=== PATIENT | female | born 2005 | race African-American/Black ===

== ENCOUNTER 2025-01-08 00:36 | Day surgery (SDC) | payer OTHER, SELFPAY ==
--- NOTE | 2024-12-27 10:35 | SUR.PREOP ---
Report to the Outpatient Waiting Room, entrance under the green pavilion located off [facility], at time ___0600____ on date ___01/08/25____. Planned Procedure Time: ____729____.? Time changes happen often and if your time is changed the preop area will call you the afternoon before. - You and your visitor will be asked to self-screen and do not enter if you have any COVID symptoms. Please call surgeon if you need to reschedule. - A mask is optional within the hospital at this time. - No food OR DRINK AFTER 11:30PM 01/07/25 until time of surgery and no smoking, or chewing tobacco (or any form of nicotine). No chewing gum, candy or mints. Take only the following medications with a SIP of water on the morning of surgery: N/A DO NOT STOP ANY OF YOUR OTHER PRESCRIPTION MEDICATIONS PRIOR TO SURGERY EXCEPT THE FOLLOWING Hold all vitamins and supplements for 3 days per anesthesiologist. Medications to discontinue per physician N/A Date to take last dose Please no make-up, nail egyptian, hairspray, perfume, deodorant, or body powder the day of surgery.? No jewelry (including any body piercings) or valuables the day of surgery, leave them at home.? Please take a shower or bath the night before, or the morning of, surgery with an antibacterial soap.? Wear comfortable, loose fitting clothing.? Children are encouraged to wear pajamas. - Jewelry must be removed prior to entering the operating room.? Rings and piercings that are not removed may be cut off. - The hospital will not accept responsibility for valuables.? - Please leave all valuables, including medications, at home the day of surgery. If you are going home after surgery, a licensed test driver must drive you home.? - NO public transportation without another adult if you receive anesthesia. - We recommend that an adult stay with you for 24 hours following discharge. - We also recommend that you do not drive, make important decision, drink alcoholic beverages, or take any drugs that were not prescribed by your health care provider for at least 24 hours after your discharge time. For Pediatric surgeries, we recommend two adults accompany the child home. Follow any additional instructions given to you from your surgeon. Telephone instructions given to MJ GONZALEZ and asked if any additional questions and then verbalized understanding. Patient advised to call surgeon office or pre surgery nurse liaison [phone] if any additional questions.
[2024-12-27 10:46] VITALS: BMI 30.5
[2025-01-08] VITALS (9 sets, daily range): BP systolic 111–138; BP diastolic 59–87; PULSE 68–112; RESP 12–16; TEMP 36.2–36.4; O2SAT 94–100; BMI 31.8
--- OUTSIDE RECORDS SUMMARY | 2025-01-08 00:39 | XMS_ITS | Clinical Summary ---
Author Organization [facility] Address [address] [place] [address] Care Team Providers Care Record Keeper Name Role Phone Unavailable Primary Care Provider Unavailabl e Source Comments [facility],non-owned Affiliates and Associated Physician Practices is amultiple site organization consisting of ambulatory clinics and hospital sitesin [place], [place], [place] and [place]. This disclosure is being madepursuant to the Care Everywhere program and may not contain all information available regarding this patient. Last updated 18.Tutee Allergies No known active allergies Medications * Be aware that medications may not be up to date on this document. Alwaysverify current medications with the patient. Medication Sig Dispensed Refills Start Date End Date Status dextromethorphan-g uaiFENesin (Robitussin DM) 10-100 MG/5ML syrup Take 10 mL by mouth every 6 hours as needed for Cough 236 mL 09/03/2024 Active acetaminophen (Tylenol) 500 MG tablet Take 1 (one) tablet by mouth every 4 hours as needed for Fever or Pain Maximum allowable Acetaminophen amount = 4 Grams (4000 mg) / 24 hours. 30 tablet 09/03/2024 Active Social History Tobacco Use Types Packs/Day Years Used Date Smoking Tobacco: Never Assessed Sex and Gender Information Value Date Recorded Sex Assigned at Not on file Gender Identity Not on file Sexual Orientation Not on file Last Filed Vital Signs Vital Sign Reading Time Taken Comments Blood Pressure 133/89 09/03/2024 8:00 PM COMPLIANCE REVIEW OFFICER Pulse 97 09/03/2024 8:00 PM COMPLIANCE REVIEW OFFICER Temperature 36.6 C (97.8 F) 09/03/2024 2:08 PM COMPLIANCE REVIEW OFFICER Respiratory Rate 18 09/03/2024 8:00 PM COMPLIANCE REVIEW OFFICER Oxygen Saturation 96% 09/03/2024 8:00 PM COMPLIANCE REVIEW OFFICER Inhaled Oxygen Concentration - - Weight 78 kg (172 lb) 09/03/2024 2:08 PM COMPLIANCE REVIEW OFFICER Height 160 cm (5' 3 ) 09/03/2024 2:08 PM COMPLIANCE REVIEW OFFICER Body Mass Index 30.47 09/03/2024 2:08 PM COMPLIANCE REVIEW OFFICER Plan of Treatment Health Maintenance Due Date Last Done Comments PAP SMEAR 2003 HIV SCREENING 2018 HPV VACCINE (1 - 3-dose series) 2018 CHLAMYDIA/GONORRHEA SCREENING 2019 MENINGOCOCCAL (Group B) VACC INE (1 of 2 - Standard) 2019 HEPATITIS C SCREENING 04/16/2021 DTAP/TDAP/TD VACCINES (1 - Tdap) 2022 HEPATITIS B VACCINE (1 of 3 - 19+ 3-dose series) 2022 COVID-19 VACCINE (1 - 2023-2 5 season) 2024 INFLUENZA VACCINE (#1) 2024 DEPRESSION SCREENING 10/30/2024 ZOSTER VACCINE (1 of 2) 2053 HIB VACCINE Aged Out No longer eligi ble based on patient's age to complete this topic MENINGOCOCCAL VACCINE Aged Out No niharika heather eligible based on patient's age to complete this topic PNEUMOCOCCAL VACCINE Aged Out No long er eligible based on patient's age to complete this topic
--- OUTSIDE RECORDS SUMMARY | 2025-01-08 00:39 | XMS_ITS | Referral Summary ---
Author Organization [facility] Address [address] [place] [address] Care Team Providers Care Financial Investigator Name Role Phone Unavailable Primary Care Provider Unavailabl e Source Comments [facility],non-owned Affiliates and Associated Physician Practices is amultiple site organization consisting of ambulatory clinics and hospital sitesin [place], [place], [place] and [place]. This disclosure is being madepursuant to the Care Everywhere program and may not contain all information available regarding this patient. Last updated 18.Edai Allergies No known active allergies Medications * [...] Comments Blood Pressure 133/89 09/03/2024 8:00 PM DITCH CLEANER Pulse 97 09/03/2024 8:00 PM DITCH CLEANER Temperature 36.6 C (97.8 F) 09/03/2024 2:08 PM DITCH CLEANER Respiratory Rate 18 09/03/2024 8:00 PM DITCH CLEANER Oxygen Saturation 96% 09/03/2024 8:00 PM DITCH CLEANER Inhaled Oxygen Concentration - - Weight 78 kg (172 lb) 09/03/2024 2:08 PM DITCH CLEANER Height 160 cm (5' 3 ) 09/03/2024 2:08 PM DITCH CLEANER Body Mass Index 30.47 09/03/2024 2:08 PM DITCH CLEANER Plan of Treatment Not on file
--- OUTSIDE RECORDS SUMMARY | 2025-01-08 00:40 | XMS_ITS | Patient Health Summary ---
Author Organization [facility] Address [address] [place] [address] Care Team Providers Care Rn Ostomy Name Role Phone Unavailable Primary Care Provider Unavailabl e Note from [facility],non-owned Affiliates and Associated Physician Practices is amultiple site organization consisting of ambulatory clinics and hospital sitesin [place], [place], [place] and [place]. This disclosure is being madepursuant to the Care Everywhere program and may not contain all information available regarding this patient. Last updated 18.[facility] Allergies No known active allergies Medications * Be aware that medications may not be up to date on this document. Alwaysverify current medications with the patient. * dextromethorphan-guaiFENesin (Robitussin DM) 10-100 MG/5ML syrup(Started 09/03/2024) Take 10 mL by mouth every 6 hours as needed for Cough * acetaminophen (Tylenol) 500 MG tablet(Started 09/03/2024) Take 1 (one) tablet by mouth every 4 hours as needed for Fever or Pain Maximum allowable Acetaminophen amount = 4 Grams (4000 mg) / 24 hours. Social History Tobacco Use Types Packs/Day Years Used Date Smoking Tobacco: Never Assessed Sex and Gender Information Value Date Recorded Sex Assigned at Not on file Gender Identity Not on file Sexual Orientation Not on file Last Filed Vital Signs Vital Sign Reading Time Taken Comments Blood Pressure 133/89 09/03/2024 8:00 PM SLEEVE SETTER SAFETY STITCH Pulse 97 09/03/2024 8:00 PM SLEEVE SETTER SAFETY STITCH Temperature 36.6 C (97.8 F) 09/03/2024 2:08 PM SLEEVE SETTER SAFETY STITCH Respiratory Rate 18 09/03/2024 8:00 PM SLEEVE SETTER SAFETY STITCH Oxygen Saturation 96% 09/03/2024 8:00 PM SLEEVE SETTER SAFETY STITCH Inhaled Oxygen Concentration - - Weight 78 kg (172 lb) 09/03/2024 2:08 PM SLEEVE SETTER SAFETY STITCH Height 160 cm (5' 3 ) 09/03/2024 2:08 PM SLEEVE SETTER SAFETY STITCH Body Mass Index 30.47 09/03/2024 2:08 PM SLEEVE SETTER SAFETY STITCH Procedures * XR CHEST 2VW(Performed 09/03/2024) Performed for Acute cough * HCG BETA BLOOD QUANTITATIVE(Performed 09/03/2024) * SARS-COV-2 (COVID-19)+INFLU A+B PCR RAPID(Performed 09/03/2024) Results * XR Chest 2Vw (09/03/2024 5:50 PM SLEEVE SETTER SAFETY STITCH) Anatomical Region Laterality Modality Chest Digital Radiogra phy 09/03/2024 8:55 PM SLEEVE SETTER SAFETY STITCH Narrative 09/03/2024 10:50 PM SLEEVE SETTER SAFETY STITCH PROCEDURE: XR CHEST 2VW, DATE/TIME OF EXAM: 09/03/2024 5:57 PM, LOCATION [facility] INDICATION: R05.1: Acute cough ADDITIONAL CLINICAL INFORMATION: Ordering Provider Reason For Exam: cough, fevers Comparison: No prior study is available for comparison at the time of this dictation. FINDINGS/IMPRESSION: There is no focal consolidation, pleural effusion, or pneumothorax. The cardiomediastinal silhouette is normal. No displaced fractures visualized. Report dictated by Sandro Haq MD (vice president client services). IRajesh MD have personally reviewed and interpreted this examination/study. > Interpreting Provider: Rajesh Zamudio MD on 09/03/2024 10:50 PM Procedure Note Rajesh Zamudio MD - 09/03/2024 PROCEDURE: XR CHEST 2VW, DATE/TIME OF EXAM: 09/03/2024 5:57 PM, LOCATION [facility] INDICATION: R05.1: Acute cough ADDITIONAL CLINICAL INFORMATION: Ordering Provider Reason For Exam: cough, fevers Comparison: No prior study is available for comparison at the time ofthis dictation. FINDINGS/IMPRESSION: There is no focal consolidation, pleural effusion, or pneumothorax. The cardiomediastinal silhouette is normal. No displaced fracturesvisualized. Report dictated by Sandro Haq MD (vice president client services). I, Rajesh Zamudio MD have personally reviewed and interpreted this examination/study. > Interpreting Provider: Rajesh Zamudio MD on 09/03/2024 10:50 PM Aniket Bey MD DIAGNOSTIC IMAGING O RDERABLES * HCG BETA BLOOD QUANTITATIVE (09/03/2024 4:32 PM SLEEVE SETTER SAFETY STITCH) Pathologist [facility] Beta-hCG Total Quantitative <3 mIU/mL 09/03/2024 5:10 PM SLEEVE SETTER SAFETY STITCH [facility] Comment: HCG Numeric Result Interpretation: Non- Females: < 5 mIU/mL Post-Menopausal Females: < 7 mIU/mL This assay is cleared for use in the early detection of only. It is not approved for any other uses such as tumor marker screening, tumor marker monitoring, etc. and should not be used for any other purposes. Blood BLOOD SPECIMEN / Unknown Venipuncture / Unknown 09/03/2024 4:32 PM SLEEVE SETTER SAFETY STITCH 09/03/2024 4:41 PM SLEEVE SETTER SAFETY STITCH Aniket Bey MD LAB - CHEMISTRY SANA [facility] Organization Address City/State/ZIP Co de Phone Number [facility] [address] [place] [id number], [facility] [phone] * SARS-COV-2 (COVID-19)+INFLU A+B PCR RAPID (09/03/2024 2:27 PM SLEEVE SETTER SAFETY STITCH) [facility] COVID-19 PCR Not detected Not detected 09/03/20 3:31 PM SLEEVE SETTER SAFETY STITCH [facility] Influenza A Rapid LISA Not Detected Not Detected 09/03/2024 3:31 PM SLEEVE SETTER SAFETY STITCH [facility] Influenza B LISA Rapid Not Detected Not Detected 09/03/2024 3:31 PM [facility] Microbiology SPECIMEN FROM NASOPHARYNGEAL STRUCTURE / Unknown Collection / Unknown 09/03/2024 2:27 PM SLEEVE SETTER SAFETY STITCH 09/03/2024 2:48 PM SLEEVE SETTER SAFETY STITCH Narrative [facility] - 09/03/2024 3:31 PM SLEEVE SETTER SAFETY STITCH Influenza assay performed by Nucleic Acid Amplification. Results do not exclude the possibility of a mixed viral infection. NOTE: Detecting and identifying specific viral nucleic acids from individuals exhibiting signs and symptoms of respiratory infection aids in the diagnosis of respiratory infection, if used in conjunction with other clinical and laboratory findings. The results of this test should not be used as the sole basis for diagnosis, treatment, or patient management decisions. This nucleic acid amplification assay performance was validated by [facility]. This test has been authorized by the Food and Drug administration (FDA)under an Emergency Use Authorization (EUA). This test has been validated in accordance with the FDA's guidance document Policy for Diagnostic Testing in Laboratories Certified to perform High Complexity Testing under CLIA prior to Emergency Use Authorization for Coronavirus Disease-2019 during the Public Health Emergency issued on December 28, 2019. FDA independent review of this validation is pending. This test is only authorized for the duration of time the declaration that circumstances exist justifying the authorization of emergency use of in vitro diagnostic tests for detection of SARS-CoV-2 virus and/or diagnosis of COVID-19 infection under section 564(b)(1) of the Act, 21 U.S.C 360bbb-3 (b)(1), unless the authorization is terminated or revoked sooner. Fact Sheets for this EUA assay are available upon request. Bethel Oh MD LAB - MICROBIOLOGY O SHER[place] [address] [id number], [facility] [phone]
--- OUTSIDE RECORDS SUMMARY | 2025-01-08 00:40 | XMS_ITS | Data Portability ---
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 Plan of Treatment Reminders Order Date Submit Date Provider Last Modified By Organization Details Last Modified Time Details Appointments ANY 15 2024 10:30A M BOOM RAZO PA-C Not available Not available Not available ANY 15 2024 09:00A M Divina Angelo MD Not available Not available Not available Lab bacterial vaginosis + vaginitis panel, vaginal 2023 024 [facility], [address], [address], [place], [address], 10/05/2024 15:09:18 unlisted lab - nuswab bv, CT/GC/TV 2023 024 [facility], [address], [address], [place], [address], 07/14/2024 08:10:57 HIV 1 + 2, meaningfu l use set 2023 024 [facility], [address], [address], [place], [place], [address], 07/11/2024 08:32:55 RPR (rapid plasma reagin), serum 2023 [facility], [address] [facility], [address], [place], [address], 07/11/2024 08:32:54 pap, IG + reflex HPV 2023 024 [facility], [address] [facility], [address], [place], [address], 07/14/2024 08:09:58 Referral plastic surgeon referral - Breast size 36DDD, thoracic back pain and lateral breast pain daily, has worked at weight loss without success 2023 [facility] MD, [address] [place] [address] 162, [facility] [address], [place], [address], 09/05/2024 15:54:48 Procedures None recorded. Surgeries None recorded. Imaging None recorded. Medication Orders Tinactin 1 % topical powder 2023 [facility] #[id number], [address] [place] [address], [id number], 10/16/2024 15:14:49 valacyclo vir 1 gram tablet 2023 024 [facility] #[id number], [address] [place] [address], [id number], 05/20/2024 15:16:41 fexofenad ine 180 mg tablet 2023 024 [facility] #64698, [address] [place] [address], [id number], 05/20/2024 15:17:14 fluticaso ne propionat e 50 mcg/actua tion nasal spray,arian pension 2023 024 [facility] #36386, [address] [place], [place], [id number], 05/20/2024 15:16:41 Zithromax Z-Wally 250 mg tablet 2023 024 [facility]24635, [address], [place], [phone], 05/20/2024 14:54:09 Patient TargetsNo targets recorded. Patient Instructions Encounter Date Encounter Id Patient Instructions Last Modified By Organization Details Last Modified Time 05/20/2024 [id number] A healthy lifestyle: care instructions [id number] Not available 05/20/2024 15:16:14 Make appointment for flu shot in the fall [email or web address] Not available 05/20/2024 15:16:12 Reason for Referral Plastic Surgeon Referral for Hypertrophy of breast Breast size 36DDD, thoracic back pain and lateral breast pain daily, has worked at weight loss without success Referring Physician: Divina Angelo, Family Medicine, Encounter Date: 07/10/2024 Results Created Date Observation Date Name Description Value Unit Range Abnormal Flag Note LastModifiedBy Organization Detail LastModifiedTime 05/20/2005/20/2024 pregn eduardo test, urine HCG negati ve Not Available In-Office Order Internal Use Only DO Not Attach Compendium DO Not Attach Compendium, Do Not Delete/merge, [id number] 05/20/2024 15:24:39 06/21/2006/22/2024 UA WITH CULTU RE REFLE X specific gravity 1.017 1.005- 1.030 Not Available [facility] ([facility]) [address] [place], [address], 06/25/2024 10:13:45 06/21/2006/22/2024 UA WITH CULTU RE REFLE X pH 8.0 5.0-7. 5 above high normal Not Available [facility] ([facility]) [address] [facility], [place], [address], 06/25/2024 10:13:45 08/23/06/22/2024 UA WITH CULTU RE REFLE X urine-color YELLOW yellow Not Available [facility] ([facility]) [address] [facility], [place], [address], 06/25/2024 10:13:45 06/21/20 24 06/22/2024 UA WITH CULTU RE REFLE X appearance CLEAR clear Not Available [facility] ([facility]) [address] [facility], [place], [address], 06/25/2024 10:13:45 06/21/20 24 06/22/2024 UA WITH CULTU RE REFLE X WBC esterase NEGATI VE negati ve Not Available [facility] ([facility]) [address] [facility], [place], [address], 06/25/2024 10:13:45 06/21/20 24 06/22/2024 UA WITH CULTU RE REFLE X protein NEGATI VE negati ve/tra ce Not Available [facility] ([facility]) [address] [facility], [place], [address], 06/25/2024 10:13:45 06/21/2006/22/2024 UA WITH CULTU RE REFLE X glucose NEGATI VE negati ve Not Available [facility] ([facility]) [address] [facility], [place], [address], 06/25/2024 10:13:45 06/21/20 24 06/22/2024 UA WITH CULTU RE REFLE X ketones NEGATI VE negati ve Not Available [facility] ([facility]) [address] [facility], [place], [address], 06/25/2024 10:13:45 06/21/20 24 06/22/2024 UA WITH CULTU RE REFLE X occult blood NEGATI VE negati ve Not Available [facility] ([facility]) [address] [facility], [place], [address], 06/25/2024 10:13:45 06/21/20 24 06/22/2024 UA WITH CULTU RE REFLE X bilirubin NEGATI VE negati ve Not Available [facility] ([facility]) [address] [facility], [place], [address], 06/25/2024 10:13:45 06/21/20 24 06/22/2024 UA WITH CULTU RE REFLE X urobilinogen ,semi-qn 1.0 mg/dL 0.2-1. 0 Not Available [facility] ([facility]) [address] [facility], [place], [address], 06/25/2024 10:13:45 06/21/2006/22/2024 UA WITH CULTU RE REFLE X nitrite, urine NEGATI VE negati ve Not Available [facility] ([facility]) [address] [facility], [place], [address], 06/25/2024 10:13:45 06/21/2006/22/2024 UA WITH CULTU RE REFLE X microscopic examination COMMEN T Micro scopi c not indic ated and not perfo rmed. Not Available [facility] ([facility]) [address] [facility], [place], [address], 06/25/2024 10:13:45 06/21/20 24 06/22/2024 UA WITH CULTU RE REFLE X urinalysis reflex COMMEN T This speci men will not refle x to a Urine Cultu re. Not Available [facility] ([facility]) [address] [facility], [place], [address], 06/25/2024 10:13:45 06/21/2006/25/2024 AMBIG UOUS TEST ORDER ambiguous test order Commen t Test not perfo rmed. Unabl e to perfo rm test due to curre nt unava ilabi lity of reage nts or disco ntinu ation of test. Test not perfo rmed. Attem pts to conta ct your facil ity were unsuc cessf ul. TEST 03832 1 Pregn eduardo, Serum Scree n IS FOR STAT LAB USE ONLY PLEAS E GIVE US A CALL TO DISCU SS TESTI NG OPTIO NS Not Available [facility] ([facility]) [address] [facility], [place], [address], 06/25/2024 10:13:46 07/10/20 24 07/11/2024 RPR, RFX QN RPR/C ONFIR M TP RPR NON REACTI VE nonrea ctive Not Available [facility] ([facility]) [address] [facility], [place], [address], 07/11/2024 08:32:53 07/10/20 24 07/11/2024 HIV AB/P2 4 AG WITH REFLE X HIV Ab/P24 Ag screen NON REACTI VE nonrea ctive HIV-1 /HIV- 2 antib odies and HIV-1 p24 antig en were NOT detec paul. There is no labor atory evide nce of HIV infec tion. HIV Negat monica Not Available [facility] ([facility]) [address] [facility], [place], [address], 07/11/2024 08:32:54 07/10/20 24 07/10/2024 IGP,A PTIMA HPV,A GE GDLN age gdln acog testing 21-29 Not Available [facility] ([facility]) [address] [facility], [place], [address], 07/14/2024 08:09:58 07/10/20 24 07/14/2024 IGP, RFX APTIM A HPV ASCU diagnosis: Commen t NEGAT MONICA FOR INTRA EPITH ELIAL HARJEET Deng OR SUBHA PEÑA . Not Available [facility] ([facility]) [address] [facility], [place], [address], 07/14/2024 08:09:59 07/10/20 24 07/14/2024 IGP, RFX APTIM A HPV ASCU specimen adequacy: Commen t Satis facto ry for evalu ation . Endoc ervic al and/o r squam ous metap lasti c cells (endo cervi bernadette compo nent) are prese nt. Not Available [facility] ([facility]) [address] [place], [address], 07/14/2024 08:09:59 07/10/20 24 07/14/2024 IGP, RFX APTIM A HPV ASCU clinician provided ICD10: Jimmy song Z12.4 Not Available [facility] ([facility]) [address] [place], [address], 07/14/2024 08:09:59 07/10/20 24 07/14/2024 IGP, RFX APTIM A HPV ASCU performed by: Valerie Smith (ASCP ) Not Available [facility] ([facility]) [address] [place], [address], 07/14/2024 08:09:59 07/10/20 24 07/14/2024 IGP, RFX APTIM A HPV ASCU . . Not Available [facility] ([facility]) [address] [place], [address], 07/14/2024 08:09:59 07/10/20 24 07/14/2024 IGP, RFX APTIM A HPV ASCU note: Jimmy song The Pap smear is a scree hannah test desig yaneli to aid in the detec tion of evin ligna nt and malig nant condi tions of the uteri ne cervi x. It is not a diagn ostic proce dure and shoul d not be used as the sole means of detec ting cervi bernadette cance r. Both false -posi tive and false -nega tive repor ts do occur . Not Available [facility] ([facility]) [address] [place], [address], 07/14/2024 08:09:59 07/10/20 24 07/14/2024 IGP, RFX APTIM A HPV ASCU test methodology: Commen t This liqui d based ThinP rep(R ) pap test was porsha groves with the use of an image guide snehal chavez Not Available [facility] ([facility]) [address] [place], [address], 07/14/2024 08:09:59 07/10/20 24 07/14/2024 IGP, RFX APTIM A HPV ASCU . Commen t The HPV DNA refle x crite adria were not met with this speci men resul t there fore, no HPV testi ng was perfo rmed. Not Available [facility] ([facility]) [address] [place], [address], 07/14/2024 08:09:59 07/10/20 24 07/13/2024 NUSWA B BV, CT/GC /TV atopobium vaginae LOW - 0 score Not Available [facility] ([facility]) [address] [place], [address], 07/14/2024 08:10:57 07/10/20 24 07/13/2024 NUSWA B BV, CT/GC /TV bvab 2 LOW - 0 score Not Available [facility] ([facility]) [address] [place], [address], 07/14/2024 08:10:57 07/10/20 24 07/13/2024 NUSWA B BV, CT/GC /TV megasphaera 1 LOW - 0 score Calcu late total score by germaine winters the 3 indiv idual bacte rial vagin osis (BV) marke r score s toget her. Total score is inter prete d as follo ws: Total score 0-1: Indic ates the absen ce of BV. Total score 2: Indet ermin ate for BV. Addit ional clini bernadette data shoul d be evalu ated to estab radha a diagn osis. Total score 3-6: Indic ates the prese nce of BV. Not Available [facility] ([facility]) [address] [facility], [place], [address], 07/14/2024 08:10:57 07/10/20 24 07/14/2024 NUSWA B BV, CT/GC /TV trich vag by LISA NEGATI VE negati ve Not Available [facility] ([facility]) [address] [facility], [place], [address], 07/14/2024 08:10:57 07/10/20 24 07/14/2024 NUSWA B BV, CT/GC /TV chlamydia trachomatis, LISA NEGATI VE negati ve Not Available [facility] ([facility]) [address] [facility], [place], [address], 07/14/2024 08:10:57 07/10/2007/14/2024 NUA B BV, CT/GC /TV neisseria gonorrhoeae, LISA NEGATI VE negati ve Not Available [facility] ([facility]) [address] [facility], [place], [address], 07/14/2024 08:10:57 09/03/2009/03/2024 Chori ogona dotro pin.b eta subun it [Unit s/vol ume] in Serum or Plasm a choriogonado tropin.intac t+beta subunit [units/volum e] in serum or plasma text: mIU/mL Beta- hCG Total Quant itati ve <3 mIU/m L 09/03 5:10 PM 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 atopobium vaginae LOW - 0 score Not Available [facility] ([facility]) [address] [facility], [place], [address], 10/05/2024 15:09:17 10/02/20 24 10/04/2024 NUSWA B BV LISA+C AND6+ CT/GC /T... bvab 2 LOW - 0 score Not Available [facility] ([facility]) [address] [facility], [place], [address], 10/05/2024 15:09:17 10/02/20 24 10/04/2024 NUSWA B BV LISA+C AND6+ CT/GC /T... megasphaera 1 LOW - 0 score Calcu late total score by germaine g the 3 indiv idual bacte rial vagin osis (BV) marke r score s toget her. Total score is inter prete d as follo ws: Total score 0-1: Indic ates the absen ce of BV. Total score 2: Indet ermin ate for BV. Addit ional clini bernadette data shoul d be evalu ated to estab radha a diagn osis. Total score 3-6: Indic ates the prese nce of BV. Not Available [facility] ([facility]) [address] [facility], [place], [address], 10/05/2024 15:09:17 10/02/20 24 10/04/2024 NUSWA B BV LISA+C AND6+ CT/GC /T... krishan albicans, LISA NEGATI VE negati ve Not Available [facility] ([facility]) [address] [place], [address], 10/05/2024 15:09:17 10/02/20 24 10/04/2024 NUSWA B BV LISA+C AND6+ CT/GC /T... krishan glabrata, LISA NEGATI VE negati ve Not Available [facility] ([facility]) [address] [place], [address], 10/05/2024 15:09:17 10/02/20 24 10/04/2024 NUSWA B BV LISA+C AND6+ CT/GC /T... trich vag by LISA NEGATI VE negati ve Not Available [facility] ([facility]) [address] [place], [address], 10/05/2024 15:09:17 10/02/20 24 10/04/2024 NUSWA B BV LISA+C AND6+ CT/GC /T... chlamydia trachomatis, LISA NEGATI VE negati ve Not Available [facility] ([facility]) [address] [place], [address], 10/05/2024 15:09:17 10/02/20 24 10/04/2024 NUSWA B BV LISA+C AND6+ CT/GC /T... neisseria gonorrhoeae, LISA NEGATI VE negati ve Not Available [facility] ([facility]) [address] [place], [address], 10/05/2024 15:09:17 10/02/20 24 10/05/2024 NUSWA B BV LISA+C AND6+ CT/GC /T... C parapsilosis /tropicalis NEGATI VE negati ve This assay does not diffe renti ate C. tropi calis and C. parap bia is. Not Available [facility] ([facility]) [address] [place], [address], 10/05/2024 15:09:17 10/02/20 24 10/05/2024 NUSWA B BV LISA+C AND6+ CT/GC /T... krishan lusitaniae, LISA NEGATI VE negati ve Not Available [facility] ([facility]) [address] [place], [address], 10/05/2024 15:09:17 10/02/20 24 10/05/2024 NUSWA B BV LISA+C AND6+ CT/GC /T... krishan krusei, LISA NEGATI VE negati ve Not Available [facility] ([facility]) [address] [place], [address], 10/05/2024 15:09:17 10/02/20 24 10/05/2024 NUSWA B BV LISA+C AND6+ CT/GC /T... hsv 1 LISA NEGATI VE negati ve Not Available [facility] ([facility]) [address] [facility], [place], [address], 10/05/2024 15:09:17 10/02/20 24 10/05/2024 NUSWA B BV LISA+C AND6+ CT/GC /T... hsv 2 LISA NEGATI VE negati ve Not Available [facility] ([facility]) [address] [facility], [place], [address], 10/05/2024 15:09:17 12/23/19 25 12/26/2024 NUA B VG+, SHASHA DA 6SP atopobium vaginae LOW - 0 score Not Available [facility] ([facility]) [address] [facility], [place], [address], 12/27/2024 07:19:25 12/23/19 25 12/26/2024 NUA B VG+, SHASHA DA 6SP bvab 2 LOW - 0 score Not Available [facility] ([facility]) [address] [place], [address], 12/27/2024 07:19:25 12/23/19 25 12/26/2024 NUA B VG+, SHASHA DA 6SP megasphaera 1 LOW - 0 score Calcu late total score by germaine winters the 3 indiv idual bacte rial vagin osis (BV) marke r score s toget her. Total score is inter prete d as follo ws: Total score 0-1: Indic ates the absen ce of BV. Total score 2: Indet ermin ate for BV. Addit ional clini bernadette data shoul d be evalu ated to estab radha a diagn osis. Total score 3-6: Indic ates the prese nce of BV. Not Available [facility] ([facility]) [address] [facility], [place], [address], 12/27/2024 07:19:25 12/23/19 25 12/26/2024 NUSWA B VG+, SHASHA DA 6SP krishan albicans, LISA NEGATI VE negati ve Not Available [facility] ([facility]) [address] [facility], [place], [address], 12/27/2024 07:19:25 12/23/19 25 12/26/2024 NUSWA B VG+, SHASHA DA 6SP krishan glabrata, LISA NEGATI VE negati ve Not Available [facility] ([facility]) [address] [facility], [place], [address], 12/27/2024 07:19:25 12/23/19 25 12/27/2024 NUSWA B VG+, SHASHA DA 6SP C parapsilosis /tropicalis NEGATI VE negati ve This assay does not diffe renti ate C. tropi calis and C. parap bia is. Not Available [facility] ([facility]) [address] [facility], [place], [address], 12/27/2024 07:19:25 12/23/19 25 12/27/2024 NUSWA B VG+, SHASHA DA 6SP krishan lusitaniae, LISA NEGATI VE negati ve Not Available [facility] ([facility]) [address] [facility], [place], [address], 12/27/2024 07:19:25 12/23/19 25 12/27/2024 NUSWA B VG+, SHASHA DA 6SP krishan krusei, LISA NEGATI VE negati ve Not Available [facility] ([facility]) [address] [place], [address], 12/27/2024 07:19:25 12/23/19 25 12/27/2024 NUSWA B VG+, SHASHA DA 6SP trich vag by LISA NEGATI VE negati ve Not Available [facility] ([facility]) [address] [facility], [place], [address], 12/27/2024 07:19:25 12/23/1912/27/2024 NUA B VG+, SHASHA DA 6SP chlamydia trachomatis, LISA NEGATI VE negati ve Not Available [facility] ([facility]) [address] [facility], [place], [address], 12/27/2024 07:19:25 12/23/1912/27/2024 NUA B VG+, SHASHA DA 6SP neisseria gonorrhoeae, LISA NEGATI VE negati ve Not Available [facility] ([facility]) [address] [facility], [place], [address], 12/27/2024 07:19:25 Result Notes None recorded. Problems Name Problem SNOMED Code Status Onset Date Resolution Date Notes Provider Name and Address Organization Details Recorded Time Seasonal allergic rhinitis 158392777 Active 2020 ESPERANZA SIDDIQUI Attn: Jose winters,[address] [place], [address], [place] - [facility] 1 15:18:43 Atopic dermatitis 83767272 Active 2020 ESPERANZA SIDDIQUI Attn: Jose g,[address] [place], [address], [place] [facility] 1 10:10:26 Genital herpes simplex 04048619 Active 2020 ESPERANZA SIDDIQUI Attn: Jose g,[address] [place], [address], [place] [facility] 1 15:22:13 Vaginal discharge 365343892 Active 2021 Jesus Hwang MD Attn: Jose g,[address] [place], [address], [place] [facility] 2 12:14:02 Fibrocystic changes of bilateral breasts 1319608267831 9105 Active 2021 Jesus Hwang MD Attn: Jose winters,[address] [facility], [place], [address], [facility] 21:27:53 Problem Notes None recorded. Medical Equipment None Reported. Allergies No known drug allergies Medications Name Sig Start Date Stop Date Status Note LastModified by Organization Details LastModified Time vitamin E 670 mg (1,000 unit) capsule Take 1 capsule every day by oral route as directed for 30 days. 12/26 completed Not Available Not Available Not Available clindamycin HCl 300 mg capsule TAKE 1 CAPSULE BY MOUTH EVERY 6 HOURS FOR 10 DAYS 10/02 completed Not Available Not Available Not Available cetirizine 10 mg tablet Take 1 tablet every day by oral route for 30 days. 09/12 completed Not Available Not Available Not Available azithromyci n 250 mg tablet 05/20 completed Not Available Not Available Not Available ibuprofen 800 mg tablet TAKE 1 TABLET BY MOUTH THREE TIMES DAILY FOR 14 DAYS NEEDED active Not Available Not Available No t Available fluconazole 150 mg tablet TAKE ONE TABLET NOW MAY REPEAT IN 3 DAYS 05/20 completed Not Available Not Available Not Available valacyclovi r 1 gram tablet TAKE 1 TABLET BY MOUTH EVERY DAY DIRECTED active Not Available Not Available No t Available tretinoin 0.025 % topical cream APPLY EXTERNALL Y TO THE AFFECTED AREA EVERY DAY AT BEDTIME 04/08 completed Not Available Not Available Not Available metronidazo le 0.75 % (37.5 mg/5 gram) vaginal gel INSERT 1 APPLICATO RFUL VAGINALLY EVERY DAY AT BEDTIME FOR 5 DAYS 08/15 completed Not Available Not Available Not Available prednisone 20 mg tablet 09/12 completed Not Available Not Available Not Available Tubersol 5 tub. unit/0.1 mL intradermal injection solution Administe r .1ml interderm ally 12/06 completed Not Available Not Available Not Available metronidazo le 500 mg tablet TAKE 1 TABLET BY MOUTH TWICE DAILY FOR 7 DAYS DIRECTED 08/15 completed Not Available Not Available Not Available sulfamethox azole 800 mg-trimetho prim 160 mg tablet 01/02 completed Not Available Not Available Not Available triamcinolo ne acetonide 0.1 % topical cream APPLY A THIN LAYER TO THE AFFECTED AREA(S) BY TOPICAL ROUTE 2 TIMES PER DAY 10/13 completed Not Available Not Available Not Available amoxicillin 875 mg tablet 05/06 completed Not Available Not Available Not Available hydrocortis one 1 % topical cream Apply 1 applicati on every day by topical route for 7 days. 09/12 completed Not Available Not Available Not Available doxycycline monohydrate 100 mg capsule Take 1 capsule twice a day by oral route with meals for 7 days. 05/15 completed Not Available Not Available Not Available oseltamivir 75 mg capsule 01/26 completed Not Available Not Available Not Available triamcinolo ne acetonide 0.1 % topical ointment APPLY EXTERNALL Y TO THE AFFECTED AREA TWICE DAILY FOR 14 DAYS active Not Available Not Available No t Available ibuprofen 400 mg tablet TAKE 1 TABLET BY MOUTH EVERY 6 HOURS NEEDED 01/06 completed Not Available Not Available Not Available Tinactin 1 % topical powder apply to affected area daily prn. Avoid using internall y. 2023 active Not Available Not Available Not Avai lable Banophen 25 mg capsule 09/12 completed Not Available Not Available Not Available ceftriaxone 500 mg solution for injection Take 500 mg by injection route. 08/26 completed Not Available Not Available Not Available ergocalcife rol (vitamin D2) 1,250 mcg (50,000 unit) capsule TAKE 1 CAPSULE BY MOUTH EVERY WEEK 07/10 completed Not Available Not Available Not Available methylpredn isolone 4 mg tablets in a dose pack 04/16 completed Not Available Not Available Not Available fluticasone propionate 50 mcg/actuati on nasal spray,suspe nsion SHAKE LIQUID AND USE 2 SPRAYS IN EACH NOSTRIL EVERY DAY active Not Available Not Available No t Available amoxicillin 875 mg-potassiu m clavulanate 125 mg tablet TAKE 1 TABLET BY MOUTH EVERY 12 HOURS FOR 5 DAYS 01/09 completed Not Available Not Available Not Available azithromyci n 500 mg tablet Take 2 tablets as single dose 08/26 completed Not Available Not Available Not Available escitalopra m 10 mg tablet Take 1 tablet every day by oral route in the morning. 01/06 completed Not Available Not Available Not Available nitrofurant oin monohydrate /macrocryst als 100 mg capsule 01/02 completed Not Available Not Available Not Available Thorp Oil 1,000 mg capsule Take 1 capsule twice a day by oral route as directed for 30 days. 12/26 completed Not Available Not Available Not Available cholecalcif arsen (vitamin D3) 1,250 mcg (50,000 unit) capsule Take 1 capsule every week by oral route as directed for 28 days. 12/26 completed Not Available Not Available Not Available Lo Loestrin Fe 1 mg-10 mcg (24)/10 mcg (2) tablet TAKE 1 TABLET BY MOUTH EVERY DAY active Not Available Not Available No t Available Allergy Relief (fexofenadi ne) 180 mg tablet TAKE 1 TABLET BY MOUTH EVERY DAY active Not Available Not Available No t Available Metamucil Sugar-Free (aspartame) 3.4 gram/5.8 gram oral powder Take 3.4 g every day by oral route as directed for 30 days. 01/06 completed Not Available Not Available Not Available Acne Medication 5 % topical gel APPLY EXTERNALL Y TO THE AFFECTED AREA EVERY DAY 03/24 completed Not Available Not Available Not Available Nextstellis 3 mg-14.2 mg (28) tablet TAKE 1 TABLET BY MOUTH EVERY DAY 07/10 completed Not Available Not Available Not Available Vitals Date Recorded Body height Body mass index (BMI) Percentile per age and sex Body mass index (BMI) Body weight Heart rate Body temperature Pain severity - 0-10 verbal numeric rating [Score] - Reported Systolic blood pressure Diastolic blood pressure Provider Name and Address Organization Details Last Updated DateTime 4 160.02 cm 88 % 27.8 kg/m2 19860 g 86 /min 98.8 [degF] 0 140 mm[Hg] 85 mm[Hg] Lillie Santiago [place] [facility] 4 14:29:55 Date Recorded Body height Body mass index (BMI) Body weight Oxygen saturation Oxygen saturation in Arterial blood by Pulse oximetry Heart rate Systolic blood pressure Diastolic blood pressure Provider Name and Address Organization Details Last Updated DateTime 4 160.02 cm 28.5 kg/m2 34310.0 1 g 97 % 97 % 80 /min 118 mm[Hg] 70 mm[Hg] Angela Paredes MA [facility] 4 15:01:31 Date Recorded Body height Body mass index (BMI) Body weight Oxygen saturation Oxygen saturation in Arterial blood by Pulse oximetry Heart rate Systolic blood pressure Diastolic blood pressure Provider Name and Address Organization Details Last Updated DateTime 4 160.02 cm 29.2 kg/m2 04636.7 4 g 97 % 97 % 72 /min 114 mm[Hg] 70 mm[Hg] Jessica Campbell MA [facility] 4 14:55:36 Date Recorded Body height Body mass index (BMI) Body weight Oxygen saturation Oxygen saturation in Arterial blood by Pulse oximetry Heart rate Body temperature Systolic blood pressure Diastolic blood pressure Provider Name and Address Organization Details Last Updated DateTime 4 160.02 cm 31 kg/m2 62398.6 6 g 98 % 98 % 85 /min 98 [degF] 108 mm[Hg] 68 mm[Hg] Elsa Alejo Angel [facility] 4 16:05:20 Date Recorded Body height Provider Name an d Address Organization Details Last Updated DateTime 12/25/2024 160.02 cm Jessica COLTEN Campbell [facility] 12/25/2024 10:48:58 Social History Question Answer Notes LastModified by Organizat ion Details LastModified Time Tobacco Smoking Status [email or web address]2017 11:53:06 What Is Your Level Of Alcohol Consumption? None Information not available 03/31/2021 Animal Exposure? No [email or web address] Informa tion not available 12/05/2017 Do You Wear A Helmet When Biking? Yes [email or web address] Information not available 12/05/2017 Are You Or Have You Been Involved With Bullying? No [email or web address] Information not available 12/05/2017 What Is Your Level Of Caffeine Consumption? Heavy Soda And Iced Coffee's Information not available 09/12/2019 What Type Of Line Crew Supervisor Do You Use? None [email or web address] Information not available 12/05/2017 In The 14 Days Before Symptom Onset, Have You Had Close Contact With A Laboratory-confir med COVID-19 While That Case Was Ill? No Information not available 08/26/2022 In The 14 Days Before Symptom Onset, Have You Had Close Contact With A Person Who Is Under Investigation For COVID-19 While That Person Was Ill? No Information not available 08/26/2022 Have You Been To An Area Known To Be High Risk For COVID-19? No Information not available 08/26/2022 What Type Of Diet Are You Following? REGULAR [email or web address] Information not available 12/05/2017 Do You Or Have You Ever Used E-cigarettes Or Vape? Never Used Electronic Cigarettes Information not available 09/12/2019 Have There Been Any Changes To Your Family Or Social Situation? No Information no t available 09/12/2019 Are There Any Guns Present In Your Home? No [email or web address] Information not available 12/05/2017 What Is Your Home Situation? Mother [email or web address] Information not available 12/05/2017 Do You Use Insect Repellent Routinely? No [email or web address] Information not available 12/05/2017 Car Seat Type Or Seat Belt? Seat Belt Information not available 09/12/2019 Parent Involvement? Both Parents Involved [email or web address] Information not available 12/05/2017 Riding In Car Front Seat? Yes [email or web address] Information not available 12/05/2017 What Was The Date Of Your Most Recent Tobacco Screening? 07/10/2024 Information not available 07/10/2024 Pool Exposure No [email or web address] Informatio n not available 12/05/2017 What Is Your Relationship Status? Single Information not available 03/31/2021 What Is The Name Of Your School? [employer] [email or web address] Information not available 12/05/2017 Are You Sexually Active? Yes Information not available 03/31/2021 Do You Have Any Siblings? 3 Siblings [email or web address] Information not available 12/05/2017 Do You Have Smoke And Carbon Monoxide Detectors In Your Home? Yes Information not available 03/31/2021 Are You Passively Exposed To Smoke? No [email or web address] Information no t available 12/05/2017 Do You Or Have You Ever Used Smokeless Tobacco? Never Used Smokeless Tobacco Information not available 09/12/2019 What Types Of Sporting Activities Do You Participate In? None Information not available 09/12/2019 Do You Use Any Illicit Or Recreational Drugs? No Information not available 03/31/2021 Do You Use Sunscreen Routinely? No [email or web address] Information not available 12/05/2017 Has Tobacco Cessation Counseling Been Provided? Yes [email or web address] Information not available 04/04/2023 On What Date Was Tobacco Cessation Counseling Provided? 07/10/2024 Information not available 07/10/2024 How Many Years Have You Smoked Tobacco? 0 Information not available 09/12/2019 Year In School 12 Informatio n not available 07/27/2020 Do You Or Have You Ever Used Any Other Forms Of Tobacco Or Nicotine? No [email or web address] Information not available 08/05/2021 Sex: Female Functional Status Question Answer Note LastModified by Organizat ion Details LastModified Time What is your exercise level? Occasional Information not available 09/12/2019 Mental Status None recorded. Family History Relationship Description Onset Age of this Age Resolved Age Notes LastModified by Organization Details LastModified Time Mother Anemia [email or web address] Not availabl e 12/05/2017 11:50:41 Mother Hypertensive disorder [email or web address] Not available 03/2018 11:52:47 Mother Seizure [email or web address] Not availab le 12/05/2017 11:52:55 Medical History Condition Response Anxiety Disorder N Diabetes N Skin Problems Y Anemia N Seizures/Epilepsy N Kidney or Bladder Problems N Depression N Asthma N Allergies Y Gynecological History Statement/Question Response Flow Light Date of LMP 07/05/2024 STIs/STDs N Duration of Flow (days) 5 Age at Menarche 12 Current Control Method BCPs Age at First Child 1 Frequency of Cycle (Q days) 28 Menses Monthly Y Date of Last Pap Smear LMP Definite Obstetrics History GPAL:G 0 P 0 0 0 0 Type Value Multiple Births 0 Full Term 0 Induced 0 Spontaneous 0 Premature 0 Ectopics 0 Total 0 Immunizations Vaccine Type Date Status Note Provider Nam e and Address Organization Details Recorded Time HPV9 7 completed Not Available [facility] 11/16/2019 02:34:22 DTaP, unspecified formulation 7 completed COLTEN [place], [place] [facility] 04/27/2016 12:54:59 DTaP, unspecified formulation 3 completed Blanka [place] [facility] 04/27/2016 12:54:59 DTaP, unspecified formulation 5 completed Blanka [place] [facility] 04/27/2016 12:54:59 DTaP, unspecified formulation 3 completed Blanka [place] [facility] 04/27/2016 12:54:59 DTaP, unspecified formulation 4 completed Blanka [place] [facility] 04/27/2016 12:54:59 MMR 4 [place]EN [place] [facility] 04/27/2016 12:58:05 polio, unspecified formulation 4 completed Blanka [place] [facility] 04/27/2016 12:58:05 Hep B, adolescent or pediatric 3 completed [place]EN [place] [facility] 04/27/2016 12:58:05 Hib, unspecified formulation 4 [place] [facility] 04/27/2016 12:58:05 Pneumococcal conjugate PCV 13 4 [place] [facility] 04/27/2016 12:58:05 polio, unspecified formulation 7 [place] [facility] 04/27/2016 12:58:05 Hib, unspecified formulation 3 [place] [facility] 04/27/2016 12:58:05 Pneumococcal conjugate PCV 13 5 [place] [facility] 04/27/2016 12:58:05 Hib, unspecified formulation 3 [place] [facility] 04/27/2016 12:58:05 Tdap 4 [place] [facility] 04/27/2016 12:58:05 Pneumococcal conjugate PCV 13 4 [place] [facility] 04/27/2016 12:58:05 meningococcal MCV4, unspecified formulation 4 [place] [facility] 04/27/2016 12:58:05 varicella 8 [place] [facility] 04/27/2016 12:58:05 Hep B, adolescent or pediatric 3 completed [place]EN [place] [facility] 04/27/2016 12:58:05 Hib, unspecified formulation 5 completed [place] [facility] 04/27/2016 12:58:06 Hep B, adolescent or pediatric 4 [place] [facility] 04/27/2016 12:58:06 MMR 7 [place] [facility] 04/27/2016 12:58:06 Pneumococcal conjugate PCV 13 3 completed [place]EN [place] [facility] 04/27/2016 12:58:06 Pneumococcal conjugate PCV 13 3 [place] [facility] 04/27/2016 12:58:06 polio, unspecified formulation 3 [place] [facility] 04/27/2016 12:58:06 Hep B, adolescent or pediatric 3 [place] [facility] 04/27/2016 12:58:06 Hep A, ped/adol, 2 dose 6 [place] [facility] 04/27/2016 12:58:06 varicella 4 [place] [facility] 04/27/2016 12:58:06 polio, unspecified formulation 3 completed Blanka [place]EN [place] [facility] 04/27/2016 12:58:06 HPV, unspecified formulation 4 completed Blanka [place]EN [place] [facility] 04/27/2016 12:58:06 Hep A, ped/adol, 2 dose 7 completed Blanka [place] [facility] 04/27/2016 12:58:06 meningococcal MCV4P 2 completed Hannah COLTEN [place] [facility] 11/03/2021 09:56:06 Past Encounters Encounter ID Performer Location Encounter Start Date Encounter Closed Date Diagnosis/Indication Diagnosis SNOMED-CT Code Diagnosis ICD10 Code Diagnosis Note [id number] KATHY CRUZ [facility] [address] [place] [address] 07/31/2017 14:40:48 07/31/2017 17:05:41 History and physical examination, school 44176503 Z02.0 HPV #2 given today. physical forms provided. follow up as needed. instructed about next vaccine menactra at 14. february participat e in PE and sports without restrictio ns. educated on seat belt safety, safe sex practices, and STI prevention . [id number] JORJE AU S, GARYNP-PC [facility] (P[facility]) [address] [place] [address] 12/05/2017 10:43:55 12/05/2017 16:50:05 Diet education 52685699 Z71.3 Examinatio n for other specified condition 061235434 Z02.5 Eruption 503460098 R21 Large round lesions apr. 6 cm in diameter to bilateral antecubita l fossas. Appear consistent with atopic dermatis. Areas are raised, thick, and pink. Martionne reports scratching them often. No history of eczema, but recently struggling with seasonal allergies. Recent exposure to new lotion (Goldbond) noticed rash after 2 weeks of applying this lotion. Mother repots trying to use antibiotic ointment as well as merlene- butter. Suggested stopping all other ointments besides vaseline. SHould apply steroid cream once-twice daily for 1 week. Take 1 week break in between if more time if needed. Follow up in 1 month if not improving. No family history of autoimmune issues. Seasonal a llergic rhinitis 534738781 J30.2 Use the Flonase as directed on a daily basis. Avoid exposing your child to any tobacco smoke as this will make any underlying allergies worse. Pay attention to what times of the year make your child's symptoms worse, as your child may only need to use the medicine for certain months depending on his/her triggers. Call the office if no improvemen t is noted in 2-4 weeks. The parents verbalized understand ing. On examina tion - cracked nipple 221751847 N64.0 Dried cracked areolas. L>R. Small cluster of old scabs noted to the left of left nipple. Started menstruati on this year. Reports that she runs a lot and may be experienci ng irritation . Encouraged to use mild moisturize r to nipples and wear supportive sports bra when running or exercise. Well child visit 3572591 09 Z00.121 Adolescent anticipato ry guidance discussed: Healthy diet, limiting sugary drinks, avoiding energy drinks, family meal times. 1 hour of physical activity a day. Limiting screen time to 2 hours a day (not including homework time). Dental exams and twice daily brushing. Discussed puberty and hormonal changes. Discussed dangers of drug, alcohol, and tobacco use. Safe Sex. Wearing seat belt in cars. Encourage reading, making sure child is taking responsibi lity for homework.F reji shot offered and declined at this time.PHQ-9 score of 0 [id number] JORJE AU S, CPNP-PC [facility] ([facility]) [address] [place] [phone] 03/13/2018 10:16:34 03/14/2018 15:55:14 Atopic dermatitis 21871919 L20.9 Martionne with return of eczema symptoms after loosing prescripti on steriod. She reports good control with 1 week applicatio n and vaseline off and on.Will order steriod to be used twice daily for no longer than 14 days. Menorrhagia 020097935 N9 2.0 Martionne reports frequent and heavy periods. Mother would like her to have an pelvic exam.She would like to see Dr. Laboy [id number] ESPERANZA BUNCH (COUNTER ROLLER) [address] [place] [phone] 09/12/2019 10:06:26 09/13/2019 10:48:30 Venereal disease screening 492143148 Z11.3 Contracept ion education 821184601 Z30.09 Discussed different control options with patient such as OCPs, patch, ring, Depo Provera shot, Nexplanon, and IUDs. Advised OCPs may be most beneficial to patient as they could also help treat dysmenorrh ea and acne. Also counseled pt and mother that it can up to 4 years after menarche to establish regular ovulatory cycles and that fluctuatio n in periods could be related to patient only being 1 year post menarche. Pt and mother would like to wait to start any control at this time. Atopic dermatitis 266563 01 L20.9 Seasonal a llergic rhinitis 568558912 J30.2 Acne 78346275 L70.9 Dysmenorrhea 577450965 N 94.6 [id number] ESPERANZA BUNCH (COUNTER ROLLER) [address] [place] [phone] 07/27/2020 10:23:13 07/29/2020 10:29:39 Fibrocystic changes of bilateral breasts [id number] 8599164 N60.11 N60.12 Noted on exam and consistent with Hx. Instructed the pt that she can treat with NSAIDS, heat/ice, supportive bra, and limit caffeine & fat/chocol ate. Also discussed that OCPs can help decrease symptoms. Care instructio ns given. Venereal d isease screening 285064092 Z11.3 Vaginal odor and discharge noted for the last 2-3 months in addition to being sexually active, swabbed for BV, yeasts, and STIs. Will contact the pt with results. Safe sex practices discussed. Contracept ion education 343320302 Z30. Encouraged the pt to use protection and start BC to avoid unwanted while sexually active. Discussed different control options with patient such as OCPs, patch, ring, Depo Provera shot, Nexplanon, and IUDs. Advised the pt that BC with low estrogenic activity & potent progestins could also help with her breast pain. The pt would like to speak with her mother before starting any BC at this time. RTC when ready to start control. [id number] [facility] ([facility]) [address] [place] [phone] 01/26/2021 08:07:21 01/28/2021 13:19:16 Irregular intermenstrual bleeding 20620158 N92.1 Spotting between cycles x 2 months. OCPs as above and STD testing as below. Family nataliia nning surveillance 450824180 Z30.09 Discussed different control options with patient such as OCPs, patch, ring, Depo Provera shot, Nexplanon, and IUDs. Patient requested Lo Loestrin. Counseled her on use and side effects. Follow up in 3 months. Venereal d isease screening 618639267 Z11.3 Patient is sexually active and reports using condoms. Will screen for STDs. Pt to present to clinic to leave urine sample for testing. [id number] [facility] ([facility]) [address] [place] [phone] 0 03/24/2021 09:02:38 03/27/2021 22:10:36 Seasonal allergic rhinitis 840052463 J30.2 Patient reports good control of symptoms with nasal spray. Will renew. Contraception care 78990 5005 Z30.41 Lo Loestrin started about 2 months ago. January with regular period, prolonged spotting in February. Discussed 3 month timeline for hormones to adjust. Patient would like to continue Lo Loestrin for a couple of more months to see if symptoms improve. Consider a higher dose of estrogen if persistent . Atopic dermatitis 547502 01 L20.9 Eczema well controlled with steroid cream. Advised discontinu ing new deodorant as likely cause of dermatitis in L axilla. Venereal d isease screening 755638872 Z11.3 Patient is sexually active and reports using condoms. Will screen for STDs as cause of bleeding. Continued condom use encouraged . [id number] ESPERANZA BUNCH (COUNTER ROLLER) [address] [place] [phone] 0 03/31/2021 11:16:04 04/17/2021 16:22:40 Acute vaginitis 62816532 N76.0 Sample collected for testing. Will treat pending results. Use mild, unscented soaps or plain water when washing, avoid any products with fragrance. Wear cotton underwear and loose fitting clothing. Wash only once per day, do not overscrub or douche. Can use ice pain or soak in cool water to relieve itching, avoid scratching .Safe sex and condom use encouraged . [id number] ESPERANZA BUNCH (COUNTER ROLLER) [address] [place] [phone] 0 05/06/2021 09:12:15 05/07/2021 18:23:11 Genital herpes simplex 15996998 A60.9 -Pt presented with erythemato us vesicles that are painful, itchy near her introitus x4 days-Per physical exam likely herpes, will treat with valtrex-HS V culture and typing done, will notify pt of results-[facility] herpes care instructio ns provided to the patient today-Educ ated patient on prevention of STDS and condom usage History of sexually transmitted disease 166826717 Z86.19 -Hx of trich 03/31/21 tx with Metronidaz ole, sx have resolved with tx-Will retest today-Educ ated patient on prevention of STDS and condom usage [id number] [facility] [address] [place] [phone] 0 05/19/2021 12:34:43 05/27/2021 13:24:59 Genital herpes simplex 09154052 A60.9 -HSV culture and typing positive for HSV2 05/06/21-Pt counseled on HSV including signs/symp toms, transmissi on, treatment- Active treatment completed, will start daily Valtrex for suppressio n-Educated patient on safe sex and condom usage [id number] ESPERANZA BUNCH (COUNTER ROLLER) [address] [place] [address] [phone] 0 06/01/2021 17:02:14 06/28/2021 14:14:57 Acute vaginitis 39651935 N76.0 Pt to drop off urine sample for testing. Will treat pending results. Use mild, unscented soaps or plain water when washing, avoid any products with fragrance. Wear cotton underwear and loose fitting clothing. Wash only once per day, do not overscrub or douche. Safe sex and condom use encouraged . Headache 32175461 R51.9 -Stay well hydrated throughout the day-Eat meals regularly, limit screen time outside of work-Use Ibuprofen as needed for symptoms-D ark, quiet room can help with symptoms [id number] ESPERANZA BUNCH (COUNTER ROLLER) [address] [place] [phone] 0 06/08/2021 09:25:49 06/28/2021 19:42:21 Vaginal discharge 776466820 N89.8 -Nuswab on 06/02 negative for any infectious process-Pt still having thin yellow-tin paul vaginal discharge w/o other symptoms-P rovided education regarding the probabilit y of this being normal, physiologi c discharge given negative testing.-A dvised pt to f/u if symptoms worsen so that in-office pelvic exam and swab can be performed [id number] ESPERANZA BUNCH (COUNTER ROLLER) [address] [place] [phone] 0 07/23/2021 14:43:34 07/30/2021 06:22:21 Acute vaginitis 22840050 N76.0 -Nuswab on 06/02 negative for any infectious process-Pt still having thin yellow-tin paul vaginal discharge w/occasion al itching-PE unremarkab le, cultures obtained. Will treat pending results-Sa fe sex practices discussed Major depr essive disorder 893840409 F32.9 PHQ9 = 11. Pt states mood is down due to the pandemic. She has been coping ok but is interested in starting medication . Advised that full therapeuti c effects can take 6-8 weeks. Encouraged counseling , referral placed. RTC in 3 months. [id number] [facility] ([facility]) [address] [place] [phone] 0 08/05/2021 12:00:13 08/05/2021 12:33:10 Gonorrhea 72540714 A54.9 [id number] ESPERANZA DEMPSEY (Adult Med) [address] [place] [phone] 0 10/13/2021 09:54:16 10/14/2021 10:36:19 History of chlamydial infection 221264845 Z86.19 She tested positive for gonorrhea, chlamydia, BV, and candidiasi s on 07/23/2021. She was not having any symptoms at the time of her diagnosis. She completed the injection and took all medication s as prescribed . She has been feeling well since last visit, denies vaginal complaints today.- urine test completed today, will call with results- encouraged her to use condoms in the future to prevent STDs Genital he rpes simplex 50995946 A60.9 Requesting refill on anti-viral medication for genital herpes.Doi ng well today, no active outbreaks. - will send refills to pharmacy- f/u with OBGYN as needed [id number] ESPERANZA DEMPSEY (Adult Med) [address] [place] [id number] 0 11/03/2021 09:10:34 11/04/2021 13:23:56 History and physical examination, [employer] 56694593 Z02.0 16 year old female presents today for college physical. She will be starting [employer] and [place] , this will be her first semester. Needs vaccines to be updated and TB test completed. She moves next week. She is doing overall well today. Active or passive immunization 441603491 Z23 Here for college physical. She will be starting [employer] and [employer] , this will be her first semester. Needs vaccines to be updated and TB test completed. - Needs 2nd Menactra and 1st Bexsero, patient does not like needles and would like to just finish Menactra for now, do Bexsero later- Menactra administer ed in the office today- will print off updated vaccine record for patient Tuberculos is screening 774039442 Z11.1 She will be starting [employer] and [place] , this will be her first semester. Needs vaccines to be updated and TB test completed. - PPD administer ed in the office today today- return in 48 hours to have test read, will provide her with paperwork at that time Vaginal di scharge problem 771856360 N89.9 Only complaint is thick vaginal discharge and mild vaginal pruritis x 2 days, she thinks she has a yeast infection. - nuswab completed by patient in the office today- rx for diflucan sent to pharmacy to treat what sounds like candidiasi s [id number] ESPERANZA DEMPSEY (Adult Med) [address] [place] [phone] 0 12/06/2021 14:12:57 12/07/2021 11:22:58 Candidiasis of vagina 27665589 B37.3 Developed white thick non-foul smelling vaginal discharge x 3 weeks that developed after finishing the oral antibiotic s for the STDs- nuswab completed- exam findings consistent with with candidiasi s, medication sent to pharmacy Chlamydial infection 105 170289 A74.9 She tested positive for chlamydia about 1 month ago, she took the medication as prescribed . Here today for [employer]. Has not been sexually active since diagnosis- nuswab completed Constipation 06244821 K5 9.00 She admits to constipati on, will only have a bowel movement 2 times a week and usually have to strain. She does not take anything to help with constipati on.Denies rectal pain, diarrhea, and history of hemorrhoid s.- start fiber supplement s, start once daily and can increase as needed- provided lots of informatio n to help with constipati on and possible hemorrhoid s [id number] MD Alok Sharif (C[employer]ER) [address] [place] [phone] 0 01/06/2022 11:02:20 01/24/2022 12:45:27 Vaginal discharge [id number] N89.8 patient reported white milky discharge. No discharge present during exam.- denies any symptoms of itching, burning urination, painful intercours e.-will prescribe abx if indicated Fibrocysti c changes of bilateral breasts [id number] 4520570 N60.12 Patient has a history of fibrocysti c change of bilateral breast. current symptoms only on left breast. During exam no hard concerning masses appreciate d. Patient counseled as to cyclical changes that occur with hormones, Advised to examine breast at the same time each month. [id number] ESPERANZA DEMPSEY (Adult Med) [address] [place] [phone] 0 03/07/2022 12:10:06 03/08/2022 10:00:40 Vaginal discharge problem 525069955 N89.9 Only complaint is thick vaginal discharge and mild vaginal pruritis x 2 days, she thinks she has another BV infection. - nuswab completed by patient in the office today- start metronidaz ole for BV due to symptoms- rx for diflucan sent to pharmacy, take to prevent candidiasi s Depression screening 171 Z13.31 PHQ 2/9 was negative in office today (0 out of 27) [id number] ESPERANZA DEMPSEY (Adult Med) [address] [place] [address] [phone] 0 04/13/2022 14:31:19 04/14/2022 10:43:13 Increased frequency of urination 065646947 R35.0 Complainin g of RLQ pain and urinary frequency x 1 week. She has not taken anything for it yet. History of recurrent STDs and vaginal infections but denies known exposure today.Roverto es frequent history of UTIs. Denies vaginal discharge and dysuria.- urine dipstick showed trace LE- due to multiple recent infections including vaingal infections , will send urine off for culture and wait for nuswab results rather than treating unknown infection today. patient states her symptoms are tolerable x 1-2 more days Genital he rpes simplex 45801482 A60.9 History of positive HSV culture on genital lesion 04/2021, in 12/2021 she completed vaginal swab and saw on the portal results HSV negative so she was confused.T aking Valtrex daily for prevention , denies additional outbreaks since first outbreak.- discussed recent results with patient, vaginal swab HSV LISA testing is looking for active viral load shedding so if no active outbreak at the time of the swab then will test negative despite hx of HSV- provided her good informatio n on HSV via ACOG Depression screening 171 Z13.31 PHQ 2/9 was negative in office today (1 out of 27) Overweight 528016375 E66 .3 Advised decreased portion sizes, good food choices, limited eating out or fast food and eliminate soda and juice from diet. Advised physical activity daily and offered encouragem ent to continue with positive changes made so far. [id number] ESPERANZA DEMPSEY [facility] (Adult Med) [address] [place] [phone] 0 06/15/2022 11:15:30 06/16/2022 11:17:57 Chlamydial infection 545482309 A74.9 Pt tested positive for chlamydia 04/13/22. Pt prescribed doxy and states compliance with medication s and full resolution of sx-Re-test ing today to confirm REYES; will contact pt with results Family nataliia nning surveillance 796157972 Z30.09 Pt requesting refill of rx-UPT negative-R x renewed as below Genital he rpes simplex 95842806 A60.9 History of positive HSV culture on genital lesion 04/2021Taki ng Valtrex daily for prevention , denies additional outbreaks since first outbreak.- Rx renewed as below Seasonal a llergic rhinitis 123559772 J30.2 Pt requesting refill of flonase-Rx renewed as below [id number] ESPERANZA DEMPSEY (Adult Med) [address] [place] [address] [phone] 0 08/26/2022 12:29:37 08/29/2022 14:12:16 Vaginal discharge 833150212 N89.8 LMP 08/19/22. Prior to menses had a thick white vaginal discharge. After menses, has been dealing with yellow thin discharge with no odor.Admit s to mild spotting before her cycles the last few months but otherwise menses are regular on her control. Possible concern for STDs. Prior history of STDs.- unable to test today since phone visit, will base off of symptoms- diflucan for candidiasi s concern and metronidaz ole for trich concern- if symptoms do not improve, need to f/u with me for testing or seek local care near her college- condoms to protect against STDs in the future Depression screening 171 487157 Z13.31 PHQ 2/9 was negative in office today (0 out of 27) Overweight 447788500 E66 .3 Advised decreased portion sizes, good food choices, limited eating out or fast food and eliminate soda and juice from diet. Advised physical activity daily and offered encouragem ent to continue with positive changes made so far. [id number] ESPERANZA DEMPSEY (Adult Med) [address] [place] [phone] 0 04/04/2023 11:27:17 04/05/2023 12:01:17 History of recurrent vaginal discharge 473932443 Z87.42 History of multiple positive BV tests and STD's in the past Milky thick discharge No dysuria or pelvic pain at this timeOnly uses Dove sensitive skin soap in the shower on the external genitalia- Start metronidaz ole 0.75% gel daily to help prevent BV- Recommende d probiotics and OTC boric acid suppositor ies to help normalize pH of the vagina High risk sexual behavior 866882135 Z72.51 Started being sexually active at 15 y/oHistory of STD's: HSV, trich, gonorrhea, chlamydiaM ilky discharge at today's visitMost recent STD - gonorrhea 12/2022 treated at ER and partner was treated as well- Swab and test completed today; patient will be notified of results when available- Encouraged use of condoms to prevent STD's and STI's Contraception care 4573194 2818 Z30.40 Patient stopped control January 2023 and does not want to restart any new form of controlUsi ng condoms w/ partner- Advised patient to continue to use condoms to prevent STD/STI's- Discussed continuing to use [employer] tracker on the phone to know when she is ovulating; patient is aware that during ovulation that is when she is at most risk of becoming - D/t recurrent BV results - discussed trying different brand of condoms Genital he rpes simplex 59640295 A60.9 History of positive HSV culture on genital lesion 04/2021Taki ng Valtrex daily for prevention , denies additional outbreaks since first outbreak.- Rx renewed as below Depression screening 171 976112 Z13.31 PHQ 2/9 was negative in office today (0 out of 27) Overweight 817570458 E66 .3 Advised decreased portion sizes, good food choices, limited eating out or fast food and eliminate soda and juice from diet. Advised physical activity daily and offered encouragem ent to continue with positive changes made so far. [id number] ESPERANZA DEMPSEY (Adult Med) [address] [place] [address] 05/15/2023 12:47:04 05/17/2023 13:11:12 Chlamydial infection 292260573 A74.9 History of STIs with current AUB.- Will r/o infection. If negative and does not resolve, will consider US.- test negative in office today. Contraception care 16029 5005 Z30.40 Patient stopped control January 2023 and now wishes to restart. Did not have side effects with prior pill, agreed to restart same medication and log bleeding days to further evaluate what hormone level needs to be changed, if any- restart control-pr egnancy test negative in office today- Advised patient to continue to use condoms to prevent STD/STI's- follow-up in 4 months after starting control for further evaluation and potential adjustment s if still having irregular bleeding Overweight 470373650 E66 .3 Advised decreased portion sizes, good food choices, limited eating out or fast food and eliminate soda and juice from diet. Advised physical activity daily and offered encouragem ent to continue with positive changes made so far. Depression screening 171 Z13.31 PHQ 2/9 was negative in office today (0 out of 27) [id number] ESPERANZA DEMPSEY (Adult Med) [address] [place] [phone] 0 06/15/2023 14:04:47 06/16/2023 16:23:22 Vaginal discharge problem 232386281 N89.9 Only complaint is new green frothy discharge and mild vaginal pruritis x 2 days, she thinks she has another trich infection. Had recent intercours e with ex-partner - nuswab completed by patient in the office today- start metronidaz ole to cover for concern of trich- rx for diflucan sent to pharmacy, take to prevent candidiasi s and due to clumpy discharge seen on exam Venereal d isease screening 691747105 Z11.3 Patient with history of multiple STIs, agreeable to screening today.-fol low up with results after obtained-p t will RTC in 3 mo for regular follow up Depression screening 171 Z13.31 PHQ 2/9 was negative in office today (0 out of 27) Overweight 416057652 E66 .3 Advised decreased portion sizes, good food choices, limited eating out or fast food and eliminate soda and juice from diet. Advised physical activity daily and offered encouragem ent to continue with positive changes made so far. [id number] ESPERANZA DEMPSEY (Adult Med) [address] [place] [address] 08/15/2023 11:55:26 08/23/2023 14:21:47 Overweight 271917962 E66.3 Advised decreased portion sizes, good food choices, limited eating out or fast food and eliminate soda and juice from diet. Advised physical activity daily and offered encouragem ent to continue with positive changes made so far. Genital he rpes simplex 65163169 A60.9 History of positive HSV culture on genital lesion 04/2021Taki ng Valtrex daily for prevention , denies additional outbreaks in the last 6 months-Rx renewed as below Mood disorder 56770236 F 37 Recently admitted for observatio n at [facility] due to concern for SI, has had decreased mood since HSV diagnosis and took 3 muscle relaxers at home to see if this would help her mood but instead it caused seizure like activity and family/sta ff was concerned for possible SI. Discharged home with Lexapro but was unable to picking tech due to insurance reasons. She declines trying to hurt herself at the time. Does not feel depressed, admits to not fully understand ing the diagnosis of HSV. Feels like mood is stable and not interested in starting medication . Has good support system with her mother.- discussed HSV again in more detail today, discussed the medication and how it is helping her to avoid outbreaks and limiting her ability to spread the virus, patient admits this conversati on really helped today- provided ACOG handout for further education- plan to monitor for now, patient declines medication as she feels like this was situationa l around her diagnosis Vitamin D deficiency 347 42829 E55.9 Vit. D low in the hospital at 11- discharged home with supplement s but unable to picking tech-prescri bed today [id number] ESPERANZA DEMP[facility] (Adult Med) [address] [place] [address] 09/28/2023 12:33:28 09/29/2023 12:26:23 Fibrocystic disease of breast 86843484 N60.19 H&P consistent with fibrocysti c breast disease, no imaging done in the past. Recommendi ng continued use of supportive bras and supportive care- Start high-dose ibuprofen PRN for breakthrou gh pain- Start OTC supplement s shown to have benefit w/ breast pain: evening primrose oil, vitamin E- RTC if pain fails to improve Thoracic back pain 53429 8004 M54.6 Patient presenting with thoracic back pain x several months. No apparent trauma or mechanism of injury as cause of pain, of note patient's breasts 38DD. Physical exam reassuring for muscular pain vs spine injury. Patient reporting pain improved with massage and stretching during today's exam.- Provided and demonstrat ed several stretching exercises to assist with upper back pain- Start high-dose ibuprofen PRN for breakthrou gh pain- Continue topical heat for symptomati c relief- May benefit from massage therapy to work out sore muscles- RTC if pain fails to improve Overweight 633628863 E66 .3 Advised decreased portion sizes, good food choices, limited eating out or fast food and eliminate soda and juice from diet. Advised physical activity daily and offered encouragem ent to continue with positive changes made so far. [id number] AMADOU GALAN (Adult Med) [address] [place] [address] 12/26/2023 11:02:07 12/27/2023 13:59:41 Depression screening 325029082 Z13.31 PHQ9- {{Negative * Positive Mild Mode rate Sever e}} (0 out of 27) Mental hea lth screening 478784034 Z13.39 GAD7- {{Negative * Positive Mild Mode rate Sever e}} (0 out of 21) Body mass index 25-29 - overweight 596822546 Z68.27 BMI 27.8 Adult [facility] th examination 894162615 Z00.00 Acute sinusitis 16840039 J01.90 Gargle with warm salt water once an hour to help reduce swelling and relieve discomfort . Use 1 teaspoon of salt mixed in 1 cup of warm water. Take an over-the-c ounter pain medicine, such as acetaminop hen (Tylenol), ibuprofen (Advil, Motrin), or naproxen (Aleve). Read and follow all instructio ns on the label. Be careful when taking over-the-c ounter cold or flu medicines and Tylenol at the same time. Many of these medicines have acetaminop hen, which is Tylenol. Read the labels to make sure that you are not taking more than the recommende d dose. Too much acetaminop hen (Tylenol) can be harmful. Drink plenty of fluids. Fluids may help soothe an irritated throat. Hot fluids, such as tea or soup, may help decrease throat pain. Use over-the-c ounter throat lozenges to soothe pain. Regular cough drops or hard candy may also help. These should not be given to young children because of the risk of choking. Do not smoke or allow others to smoke around you. If you need help quitting, talk to your doctor about stop-smoki ng programs and medicines. These can increase your chances of quitting for good. Use a vaporizer or humidifier to add moisture to your bedroom. Follow the directions for cleaning the machine. Genital he rpes simplex 45277231 A60.9 Pt to c/w suppressio n medication Refills given today Seasonal a llergic rhinitis 205619563 J30.2 [id number] MD Alok Gottlieb (Adult Med) [address] [place] [phone] 01/10/2024 14:47:06 01/11/2024 21:08:18 Vaginitis 28366012 N76.0 Milky vaginal discharge. No pelvic pain. Will have her self collect to check for infection. Will let her know result. Recently treated for sinus infection. Consider Gardnerell a and BV. Contracept ion care management 600297749 Z30.9 Continue present contracept ion. Tolerating it well. Follow up in six months. Genital he rpes simplex 05092868 A60.9 Has not had an outbreak in some time. Continue suppressiv e dose of Valacyclov ir. Does not need refills at this time. Follow up in six months. [id number] AMADOU GALAN (Adult Med) [address] [place] [phone] 03/19/2024 16:59:27 03/22/2024 14:38:49 Body mass index 25-29 - overweight 314442923 Z68.27 BMI 27.9 Advised decreased portion sizes, good food choices, limited eating out or fast food and eliminate soda and juice from diet. Advised physical activity daily and offered encouragem ent to continue with positive changes made so far. Depression screening 171 795435 Z13.31 PHQ9- {{Negative * Positive Mild Mode rate Sever e}} (0 out of 27) Mental hea [facility] screening 357494276 Z13.39 GAD7- {{Negative * Positive Mild Mode rate Sever e}} (0 out of 21) Chronic tonsillitis 9097 9004 J35.01 Enlarged tonsils on PE today, no exudatesRe ferral to ENT Gargle with warm salt water once an hour to help reduce swelling and relieve discomfort . Use 1 teaspoon of salt mixed in 1 cup of warm water. Take an over-the-c ounter pain medicine, such as acetaminop hen (Tylenol), ibuprofen (Advil, Motrin), or naproxen (Aleve). Read and follow all instructio ns on the label. Be careful when taking over-the-c ounter cold or flu medicines and Tylenol at the same time. Many of these medicines have acetaminop hen, which is Tylenol. Read the labels to make sure that you are not taking more than the recommende d dose. Too much acetaminop hen (Tylenol) can be harmful. Drink plenty of fluids. Fluids may help soothe an irritated throat. Hot fluids, such as tea or soup, may help decrease throat pain. Use over-the-c ounter throat lozenges to soothe pain. Regular cough drops or hard candy may also help. These should not be given to young children because of the risk of choking. Do not smoke or allow others to smoke around you. If you need help quitting, talk to your doctor about stop-smoki ng programs and medicines. These can increase your chances of quitting for good. Use a vaporizer or humidifier to add moisture to your bedroom. Follow the directions for cleaning the machine. Allergic disposition 609 373137 T78.40XD Start fexofenadi ne 180mg dailyC/W nasal spray Headache 12407174 R51.9 Will do allergy medication - if no relief to schedule appointmen t for further evaluation [id number] Skyler Vogt MD [facility] [address] [place] [address] 04/08/2024 14:17:24 2024 10:28:03 Acute tonsillitis 79929353 J03.90 follow-up 2 weeks [id number] AMADOU GALAN (Adult Med) [address] [place] [address] [phone] 0 05/20/2024 14:50:02 05/21/2024 16:19:50 Seasonal allergic rhinitis 142847676 J30.2 C/W fluticason e nasal spray Genital he rpes simplex 15423113 A60.9 Pt to c/w suppressio n medication Refills given today Allergic disposition 609 202514 T78.40XD Start fexofenadi ne 180mg dailyC/W nasal spray Overweight 638919713 E66 .3 BMI 28.5 Depression screening 171 826235 Z13.31 PHQ9- {{Negative * Positive Mild Mode rate Sever e}} (0 out of 27) Mental hea lth screening 806199527 Z13.39 GAD7- {{Negative * Positive Mild Mode rate Sever e}} (0 out of 21) [id number] MD Alok Gottlieb (Adult Med) [address] [place] [address] 07/10/2024 14:34:43 07/11/2024 10:44:54 Screening for malignant neoplasm of cervix 714650666 Z12.4 Venereal d isease screening 279205582 Z11.3 Thoracic back pain 70431 8004 M54.6 Hypertrophy of breast 37 7587598 N62 Contracept ion care management 998393153 Z30.9 Does not want to pursue contracept ion at this time due to concern about weight gain. Will discuss copper IUD along with spermicide at follow up. [id number] MD Alok Gottlieb (Adult Med) [address] [place] [phone] 10/02/2024 15:58:01 10/17/2024 14:53:45 Vaginitis 60556366 N76.0 Discharge consistent with yeast but no itching. May be Gardnerell a due to recent use of powder. Will let her know result and treat accordingl y. Hypertrophy of breast 37 5664845 N62 Approved for breast reduction in December. Hyperhidrosis 905419287 R61 [id number] COLTEN Murillo (Adult Med) [address] [place] [phone] 12/25/2024 10:33:20 12/26/2024 11:04:23 Vaginal irritation 936370408 N89.8 Vaginal Irritation - Nuswab and a creamy milky white discharge denies odor Health Concerns Section Related Observation LastModified by Organization Detai ls LastModified Time None Recorded Concern Status LastModified by Organization Details LastModified Time None Recorded Advance Directives Directive None Recorded Payers Encounter Date Sequence Insurance Name Policy Number Policy Temple Covered Member ID Temple Member ID Guarantor Name 04/08/2024 1 [facility] ON OR AFTER 04/29/21 (MEDICAID REPLACEMENT - HMO) Martionne Nirmal [id number] Martionne Nirmal 05/20/2024 1 [facility] ON OR AFTER 04/29/21 (MEDICAID REPLACEMENT - HMO) Martionne Nirmal [id number] Martionne Nirmal 07/10/2024 1 [facility] ON OR AFTER 04/29/21 (MEDICAID REPLACEMENT - HMO) Martionne Nirmal [id number] Martionne Nirmal 10/02/2024 1 [facility] ON OR AFTER 04/29/21 (MEDICAID REPLACEMENT - HMO) Martionne Nirmal [id number] Martionne Nirmal 12/25/2024 1 [facility] ON OR AFTER 04/29/21 (MEDICAID REPLACEMENT - HMO) Martionne Nirmal [id number] Martionne Nirmal Notes Date Note Type Note Provider Name and Address Organization Details Recorded Time 04/08/2024 text/html Patient complaining of persistent tonsillitis. She started have problems 6 weeks ago. She was treated with amoxicillin and did not improve. She still has swelling inflammation of her tonsils discomfort when she swallows. She occasionally gets debris from her tonsils. Skyler Vogt MD [address], [place], [address], [facility] 04/08/2024 14:40:50 05/20/2024 text/html 19 y/o AA F here for f/u MATTHEWS. Pt states HAs have resolved since starting allergy medication. States she also went to appt with ENT and was treated for tonsillitis. Issue has since resolved and has not had issues since. Denies SOB, CP, MATTHEWS, N/V/D at this time. BOOM RAZO PA-C Attn: Accounting, [address] , [place], [address], 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 07/10/2024 15:26:26 10/02/2024 text/html follow up, breas t reduction has been approved and is scheduled for December, has been using shower to shower powder because sweats in vaginal area, feels that may have caused vaginal discharge, has cottage cheese discharge, no pain or itching, sexually active, was prescribed antibiotic for ten days recently due to sore throat, non smoker, no other medical problems, Divina Angelo MD Attn: Accounting,[address] , [place], [address], [facility] 10/16/2024 15:14:53 OBGyn Episode No OBEpisode recorded.
[2025-01-08] MEDS: LACTATED RINGERS 1,000 ML 30 ML IV CONT ×2 (06:20→09:42)
[2025-01-08 06:42] LABS: BEDSIDEPREGUCG Negative (Negative)
[2025-01-08] MEDS: SCOPOLAMINE 1 MG PATCH 1 PATCH TRANSDERM (06:42)
--- NOTE | 2025-01-08 06:47 | P.HPUP_ITS ---
History and Physical Update Update Date/Time: 01/08/25 06:47 Patient seen and examined in pre-operative holding area. No interval change in medical history or symptoms. Patient remembers previous discussion of benefits and alternatives to procedure. Continues to desire to proceed with bilateral brest reduction . I reviewed the risks including but not limited to bleeding ,infection, asymmetry, undesireable cosmetic appearance, partial/total skin/nipple loss, no change or worsening of symptoms, change in sensation. I discussed the possible use of assistants and their level of participation in the case. Patient stated understanding and signed the consent form wishing to pro ceed
--- NOTE | 2025-01-08 06:47 | W.PM.PROC2 ---
Procedure Note - Detailed Date of Procedure 01/08/25 Pre-op Diagnosis hypertrophy of breasts Post-op Diagnosis Same Procedure Performed b/l breast reduction Surgeon JuanM anuel Toledo MD Director [employer] vicente mcmahon pa-c Anesthesia General Description of Procedure Patient was seen in the preoperative holding area where the breasts were marked for an inferior pedicle Fonseca pattern reduction. Consent form was signed. Patient was taken back to the operating room and placed on the table in the supine position. Time-out was performed with anesthesia, surgeon, and Staff agreeing on patient's name, site, and surgery to be performed. SCDs were placed on the lower extremities and inflated. Antibiotics were given IV. After general anesthesia was administered the breasts were prepped and draped in the usual standard fashion I took my attention 1st to the right breast where I used a saline moistened lap pad and a Belem clamp to create a breast tourniquet. 38 mm nipple Sizer was used to circumscribe the nipple-areolar complex. I proceeded with de epithelializing a 7 cm wide inferior pedicle. I made my other skin incisions and then elevated skin flaps in Ismael's plane with Bovie cautery to expose the breast down to the chest wall. I proceeded with resection of 824 g of tissue from the right breast. Further resection would have compromised vascular and nerve pedicle to the nipple. I plicated the pedicle with 2-0 Vicryl suture. I irrigated with normal saline and hemostasis with Bovie cautery. 2-0 Prolene was used to secure the T junction. 3-0 Vicryl was used for dermis. The nipple was brought out 5.5 cm above the inframammary fold at the most prominent portion of the breast at the breast midline and secured with 3-0 Vicryl suture. 4-0 monocryl was used for subcuticular closure. The skin flaps and nipple appeared viable with good cap refill next I turned my attention to the left breast where the same procedure was performed. I used the breast tourniquet 38 mm nipple Sizer and de-epithelialized a 7 cm wide inferior pedicle. I made my other skin incisions and then used Bovie cautery to elevate superior skin flaps and Ismael's plane down to the chest wall exposing the breast. I proceeded with resection of 823 g of tissue from the left breast which appeared reasonably symmetric to the reduced right breast. Hemostasis was obtained with Bovie cautery after irrigation. the pedicle was plicated with 2-0 Vicryl suture. 2-0 Prolene was used to secure the T-junction. 3-0 Vicryl was used for dermis. the nipple was brought out 5.5 cm above the inframammary fold at the most prominent portion of the breast at the breast midline and secured with 3-0 Vicryl suture. 4-0 Monocryl was used for subcuticular closure. I injected 20 cc of 1% lidocaine with epinephrine and 0.5% Marcaine plain along the IMF and anterior axillary line of breast. A dressing of Mastisol, Steri-Strips, 4 x 4, ABDs and a breast binder was then applied. The patient was awakened from anesthesia and transferred to the recovery room in stable condition. Complications: None estimated blood loss: 30 cc disposition: Patient tolerated the procedure well and will be going home later today Vicente Mcmahon PA-C was essential for positioinng, retraction, closure and dressing placement [facility] [place] Billing Surgery - Charge Forward: Surgery Billing ([id number] same for vicente adding )
--- NOTE | 2025-01-08 07:23 | P.PNAN_ITS ---
Anes - Initial Pre Proc Eval Procedure: Operation Date: 01/08/25 07:30 Proposed Procedures p Bilateral Breast Reduction - Juan Manuel Toledo MD Date/Time: 01/08/25 07:23 Surgeon: Juan Manuel Toledo MD Pre Op Diagnosis: hypertrophy of breasts Patient Data Age: 19 Gender: F Height: 1.6 m Weight: 81.7 kg Last Vital Signs Temp 36.4 C L 01/08/25 06:00 Pulse 93 01/08/25 06:00 Resp 16 01/08/25 06:00 BP 130/87 01/08/25 06:00 Pulse Ox 99 01/08/25 06:00 Allergies Allergy/AdvReac Type Severity Reaction Status Date / Time No Known Allergies Allergy Verified 01/08/25 06:04 Home Medications ?Medication ?Instructions ?Recorded ?Confirmed ?Type fluticasone propionate 50 2 spray intranasal HS 12/27/24 01/08/25 History mcg/actuation nasal spray,suspension valacyclovir 1 gram tablet 1,000 mg PO . daily 12/27/24 01/08/25 History cephalexin 500 mg capsule 500 mg PO Q8H #21 caps 01/08/25 Rx oxycodone-acetaminophen 5 mg-325 1 tablet PO Q6H PRN pain #12 tabs 01/08/25 Rx mg tablet Laboratory Tests 01/08/25 06:15 POC Urine HCG, Qual Negative (Negative) Patient hx anesthesia problems: none Family hx anesthesia problems: none Results Review: All pre-operative results and documents have been reviewed as part of the pre- operative evaluation. [facility] Past Medical History Medical History (Updated 01/08/25 @ 07:23 by Skyler Slater MD) Obesity Social History Social History (Updated 01/08/25 @ 07:24 by Skyler Slater MD) Smoking status: Former smoker Substance use type: marijuana Other substance usage details: RARE Living arrangements: with family Spiritual care concerns: No Anes - Eval Final PreProcedure Day of Procedure 01/08/25 07:23 Patient weight: obese Heart: regular rate and rhythm Lungs: clear to auscultation Airway: Mallampati scale class 1 Neurological: alert and oriented Last oral intake: >/= 8 hours ASA classification: II Emergent: no Anesthetic plan: proceed Anesthesia type and monitoring: general ETT and standard monitoring Results Review: All pre-operative results and documents have been reviewed as part of the pre- operative evaluation. Informed Consent: The patient's anesthetic plan and its attendant risks and benefits were discussed with the patient/family/POA. Questions were solicited and answers provided to the satisfaction of the patient/family/POA.
[2025-01-08] MEDS: ceFAZolin 2 GM/D5W 50 ML 2 GM/50 ML BAG IVPB (07:26)
[2025-01-08] MEDS: LIDO 1%/EPINEPHRINE 1:100,000 50 ML VIAL 10 ML INFILTRATE (07:56)
[2025-01-08] MEDS: fentaNYL CITRATE INJ (*CRX) 100 MCG/2 ML VIAL 25 MCG IV PUSH ×2 (10:07→10:10)
[2025-01-08] MEDS: oxyCODONE HCL (*CRX) 5 MG TAB IR PO (11:51)
--- NOTE | 2025-01-08 12:07 | SUR.PHASEII ---
1150 pt is stable, dressed, and ready for discharge, waiting for ride.
== END 2025-01-08 12:11 | disposition home or self-care (01) ==
PROVIDERS: PCP Physician Assistant Medical; Visit Provider Plastic Surgery
PROC: 0HBV0ZZ Excision of Bilateral Breast, Open Approach (ICD-10-PCS; CPT 19318; principal; 2025-01-08 07:30)
DX: N62 Hypertrophy of breast (principal); F12.90 Cannabis use, unspecified, uncomplicated; E66.9 Obesity, unspecified; Z68.31 Body mass index [BMI] 31.0-31.9, adult; Z79.891 Long term (current) use of opiate analgesic; Z87.891 Personal history of nicotine dependence
CPT/HCPCS: 19318; 88305; A9270; J0690; J1100; J1171; J2003; J2004; J2250; J2405; J2704; J3010; J7120